=== PATIENT | male | born 1995 | race Hispanic/Latino ===

== ENCOUNTER 2019-02-12 16:39 | Emergency (ER) | payer OTHER ==
[~2019-02-12] VITALS: Ht 170.2 cm; Wt 73.0 kg
[2019-02-12 20:45] VITALS: BP 119/79
== END 2019-02-12 20:57 | disposition home or self-care (01) | DRG 605 ==
LOC: ED 16:39
DX: S40.011A Contusion of right shoulder, initial encounter (principal); M79.651 Pain in right thigh; W20.8XXA Other cause of strike by thrown, projected or falling object, initial encounter; Y93.89 Activity, other specified; Y92.73 Farm field as the place of occurrence of the external cause; Y99.0 Civilian activity done for income or pay